=== PATIENT | male | born 1965 | race Caucasian/White ===

== ENCOUNTER → 2019-04-05 | Outpatient (CLI) | payer BC, SELFPAY ==
[2019-04-05 12:18] LABS: Hematocrit 50.1 % (40-54); Hemoglobin 16.6 g/dL (13.0-16.5); Mean Corp Hgb Conc 33.1 g/dL (32-36); Mean Corpuscular Hgb 28.6 pg (27.0-32.0); Mean Corpuscular Volume 86.2 fL (80-94); Mean Platelet Vol. 9.4 fl (6.2-12.0); Platelet Count 278 K/mm3 (150-450); RBC Distribution Width CV 13.4 % (11.6-14.6); RBC Distribution Width SD 41.7 fl (35.1-43.9); Red Blood Count 5.81 M/mm3 (4.6-6.2); White Blood Count 10.7 K/mm3 (4.4-11.0)
[2019-04-05 12:58] LABS: Anion Gap 3 (5-15); BUN 10 mg/dL (7-18); BUN/Creat Ratio 9.3 RATIO (10-20); Calcium,Total 9.2 mg/dL (8.5-10.1); Chloride 99 mmol/L (98-107); Creatinine, Serum 1.07 mg/dL (0.70-1.30); EST Glomerular Filtration Rate 77 mL/min (>60); Est Glom Filt Rate - Afr Amer 93 mL/min (>60); Follicle Stimulating Hormone < 0.2 mIU/mL; Glucose 327 mg/dL (74-106); Luteinizing Hormone < 0.2 mIU/mL; PSA,Total - Annual Screen 0.58 ng/mL (0.00-4.00); Potassium 4.4 mmol/L (3.5-5.1); Prolactin 5.5 ng/mL; Sodium Level 135 mmol/L (136-145)
== END | disposition home or self-care (01) ==
LOC: LAB 11:21
PROVIDERS: Family Provider Physician Assistant; PCP Physician Assistant; Referring Provider Urology; Visit Provider Urology
DX: E29.1 Testicular hypofunction (principal); Z12.5 Encounter for screening for malignant neoplasm of prostate
CPT/HCPCS: 36415; 80048; 83001; 83002; 84146; 84153; 85027; G0103

== ENCOUNTER → 2023-02-14 | Outpatient (CLI) | payer BC, SELFPAY ==
[2023-02-14 15:58] LABS: PSA,Total - Annual Screen 0.67 ng/mL (0.00-4.00)
== END | disposition home or self-care (01) ==
PROVIDERS: PCP Physician Assistant; Referring Provider Urology; Visit Provider Urology
DX: Z12.5 Encounter for screening for malignant neoplasm of prostate (principal)
CPT/HCPCS: 36415; 84153; G0103

== ENCOUNTER → 2023-09-12 | Outpatient (CLI) | payer BC, SELFPAY ==
--- NOTE | 2023-09-12 16:45 | STRESSREP ---
Stress Test Report Exercise stress test. 58-year-old male with a history of chest pain Stress protocol: Resting EKG demonstrates normal sinus rhythm with a rate of 76 bpm resting blood pressure is 180/100 mmHg. The patient exercised according to the regular James protocol for a total duration of 3 minutes attaining a maximum heart rate of 125 bpm which was 76% of maximum predicted heart rate; the maximum workload was 4.6 metabolic equivalents. At rest there were no ST or T wave changes noted to suggest ischemia and at peak exercise upsloping ST changes only were noted which did not meet the criteria for ischemia. No clinical angina was noted the test was terminated due to the target heart rate being achieved/fatigue. The peak blood pressure was 240/100 mmHg which was a hypertensive response to exercise necessitating termination of the testing. Rate-pressure product was 28,080. Exercise stress test demonstrating the following: Hypertensive response to exercise with no ischemia at a low workload.
== END | disposition home or self-care (01) ==
LOC: CVS 09:44
PROVIDERS: PCP Physician Assistant; Referring Provider Physician Assistant; Visit Provider Physician Assistant
DX: R94.31 Abnormal electrocardiogram [ECG] [EKG] (principal); R94.39 Abnormal result of other cardiovascular function study
CPT/HCPCS: 93017

== ENCOUNTER → 2024-07-23 | Outpatient (CLI) | payer BC, SELFPAY ==
--- NOTE | 2024-07-23 15:50 | CT_ITS ---
EXAM: CT ABDOMEN WITH INTRAVENOUS CONTRAST CLINICAL INDICATION: PAIN TECHNIQUE: Helically acquired images were obtained of the abdomen with intravenous contrast. This CT exam was performed using one or more of the following dose reduction techniques: automated exposure control, adjustment of the mA and/or kV according to patient size, and/or use of iterative reconstruction technique. CONTRAST: IV 100mL Isovue-300 RADIATION DOSE: CTDIvol = 17.07 mGy, DLP = 1116.35 mGy-cm. COMPARISON: No relevant prior studies available. FINDINGS: LOWER THORAX: There are mild bilateral coronary artery calcifications, the heart is not fully included but normal in size. Minimal groundglass opacities at the lung bases, likely atelectasis. No significant pericardial effusion. LIVER: Mild hepatomegaly or prominent Garret''s lobe, the right lobe of the liver is 21.2 cm craniocaudal. GALLBLADDER AND BILE DUCTS: Partially contracted gallbladder without visible stones or inflammation. No gallbladder distention or wall edema. No intra- or extrahepatic biliary ductal dilation. PANCREAS: Unremarkable. No focal cystic or solid mass. SPLEEN: Mildly enlarged at 14.4 cm AP by 4.1 cm craniocaudal and 5.5 cm transverse. ADRENALS: Unremarkable. No nodules. KIDNEYS AND URETERS: Unremarkable. Normal renal size and position. No hydronephrosis. STOMACH AND BOWEL: Unremarkable. No stomach or bowel distention. No focal inflammatory change. APPENDIX: Mild fluid and gas in the stomach. There is contrast in multiple mid small bowel loops, no small bowel distention. Distal ileal loops are not opacified but small. Small gas-filled appendix is seen. Moderate stool throughout the proximal half of the colon. Mild gas and stool in the descending and proximal sigmoid colon. INTRAPERITONEAL SPACE: Unremarkable. No ascites or other fluid collection. No free air. BONES/JOINTS: Multilevel vacuum disc, disc space narrowing and spondylosis of the lumbar spine. Multilevel spinal canal narrowing. At least moderate neural foraminal stenosis at multiple lumbar levels. No suspicious lytic or blastic abnormality. SOFT TISSUES: Unremarkable. No discrete abdominal wall hernia. VASCULATURE: No aortic aneurysm or dissection. Mild atherosclerotic calcification of aortoiliac vessels. Incidentally noted retroaortic left renal vein. LYMPH NODES: No enlarged lymph nodes. OTHER FINDINGS: The pelvis is not included. CT/Abdomen W/WO IV Contrast IMPRESSION: 1. Nonspecific findings. 2. Coronary artery calcifications, the heart is not fully included. 3. Moderate stool in much of the colon. The pelvis is not included. 4. Unremarkable gallbladder and ducts. 5. Mild hepatosplenomegaly. 6. Moderate degenerative spine changes with mild spinal canal narrowing and at least moderate multilevel neural foraminal stenosis. Electronically Signed: Kiara Shine MD at 3:13 EST ,
[2024-07-23 18:28] LABS: CREATININE FINGERSTICK < 1.0 mg/dL (0.70-1.30); EGFR FINGERSTICK > 60.0000 mL/min (>60)
== END | disposition home or self-care (01) ==
LOC: CT 17:55
PROVIDERS: PCP Physician Assistant; Referring Provider Physician Assistant; Visit Provider Physician Assistant
DX: E11.69 Type 2 diabetes mellitus with other specified complication (principal); E78.2 Mixed hyperlipidemia; E27.0 Other adrenocortical overactivity
CPT/HCPCS: 74170; Q9967